=== PATIENT | male | born 1985 | race Caucasian/White ===

== ENCOUNTER 2019-05-04 03:43 | Emergency (ER) | payer SELFPAY ==
[~2019-05-04] VITALS: Ht 170.2 cm; Wt 90.0 kg
[2019-05-04] MEDS ORDERED: KETOROLAC 30 MG/1 ML ONE (04:20)
[2019-05-04] MEDS ORDERED: ONDANSETRON 2MG/ML, 2ML ONE (04:20)
[2019-05-04 04:23] LABS: BASOPHILS # (AUTO) 0.04 x10^3/uL (0-0.1); BASOPHILS % (AUTO) 0 % (0-1); EOSINOPHILS # (AUTO) 0.05 x10^3/uL (0-0.4); EOSINOPHILS % (AUTO) 0 % (1-7); LYMPHOCYTES # (AUTO) 1.71 x10^3/uL (1-3.4); LYMPHOCYTES % (AUTO) 11 % (22-44); MD NO; MEAN CORPUSCULAR HEMOGLOBIN 32.5 pg (27.5-34.5); MEAN CORPUSCULAR HGB CONC 34.3 g/dL (33.2-36.2); MEAN CORPUSCULAR VOLUME 94.7 fL (81-97); MEAN PLATELET VOLUME 9.4 fL (7.4-10.4); MONOCYTES # (AUTO) 1.03 x10^3/uL (0.2-0.8); MONOCYTES % (AUTO) 7 % (2-9); NEUTROPHILS % (AUTO) 81 % (42-75); PLATELET COUNT 188 x10^3/uL (130-400); RED BLOOD COUNT 5.48 x10^6/uL (4.38-5.82); RED CELL DISTRIBUTION WIDTH 12.6 % (9.4-14.8)
[2019-05-04] MEDS ORDERED: SODIUM CHLORIDE 0.9% 1,000ML IVBOLUS ONE (04:30)
[2019-05-04] MEDS ORDERED: ONDANSETRON 2MG/ML, 2ML IVPush ONE (04:30)
[2019-05-04] MEDS ORDERED: KETOROLAC 30 MG/1 ML IVPush ONE (04:30)
--- NOTE | 2019-05-04 04:30 | NUR ---
ABD PAIN SINCE SATURDAY. PAIN IN ED DESCRIBED 15/10. PAIN IN ALL QUADRANTS, ALSO LEFT SIDE. PT HAD VOMITX2 TODAY. APPENDIX REMOVED WHEN HE WAS 8. PIV PLACED AND PT MEDICATED FOR PAIN AND NAUSEA PER EMAR
[2019-05-04 04:33] LABS: MICROSCOPIC NOT IND
[2019-05-04 04:33] LABS: ALANINE AMINOTRANSFERASE 28 U/L (12-78); ALBUMIN 3.6 g/dL (3.4-5.0); ANION GAP 7 mmol/L (5-15); CHLORIDE 104 mmol/L (98-107); CREATININE 1.05 mg/dL (0.7-1.3)
[2019-05-04 04:35] LABS: ALKALINE PHOSPHATASE 66 U/L (45-117); BILIRUBIN,TOTAL 1.4 mg/dL (0.2-1.0); TOTAL PROTEIN 8.2 g/dL (6.4-8.2)
[2019-05-04 04:38] LABS: CULTURE INDICATED? NO
[2019-05-04 05:30] VITALS: BP 140/100
--- NOTE | 2019-05-04 05:30 | NUR ---
PT VERBALIZED PAIN RELIEF. PT STATES HE "FEELS WAY BETTER" AND RATES PAIN A 3/10 COMPARED TO A 15/10 WHEN HE ARRIVED.
== END 2019-05-04 07:02 | disposition home or self-care (01) ==
LOC: ED 05:48
DX: K52.9 Noninfective gastroenteritis and colitis, unspecified (principal); K82.4 Cholesterolosis of gallbladder
CPT/HCPCS: 36415; 76700; 80053; 80307; 81003; 83690; 85025; 96374; 96375; 99284; J1885; J2405; J7030

== ENCOUNTER 2019-12-24 00:29 | Emergency (ER) | payer SELFPAY ==
[~2019-12-24] VITALS: Ht 170.2 cm; Wt 93.1 kg
[2019-12-24 01:01] VITALS: BP 151/113
[2019-12-24] MEDS ORDERED: HYDROmorphone 1 MG/ML, 1ML INJ ONE ×2 (01:02→02:04)
[2019-12-24] MEDS: HYDROmorphone 2 MG/ML, 1ML IVPush PRN ×2 (01:04→02:09)
--- NOTE | 2019-12-24 01:11 | NUR ---
BREAK RN: PATIENT GIVEN MEDICATION, TOLERATED WELL. VITAL SIGNS STABLE. PATIENT DENIES ANY FURTHER NEEDS AT THIS TIME.
[2019-12-24 01:19] LABS: BASOPHILS # (AUTO) 0.02 x10^3/uL (0-0.1); BASOPHILS % (AUTO) 0 % (0-1); EOSINOPHILS # (AUTO) 0.26 x10^3/uL (0-0.4); EOSINOPHILS % (AUTO) 4 % (1-7); LYMPHOCYTES # (AUTO) 2.14 x10^3/uL (1-3.4); LYMPHOCYTES % (AUTO) 37 % (22-44); MD NO; MEAN CORPUSCULAR HEMOGLOBIN 33.1 pg (27.5-34.5); MEAN CORPUSCULAR HGB CONC 34.5 g/dL (33.2-36.2); MEAN CORPUSCULAR VOLUME 96.1 fL (81-97); MEAN PLATELET VOLUME 8.4 fL (7.4-10.4); MONOCYTES % (AUTO) 10 % (2-9); NEUTROPHILS # (AUTO) 2.82 x10^3/uL (1.8-6.8); NEUTROPHILS % (AUTO) 48 % (42-75); PLATELET COUNT 223 x10^3/uL (130-400); RED BLOOD COUNT 4.94 x10^6/uL (4.38-5.82); RED CELL DISTRIBUTION WIDTH 13.1 % (9.4-14.8)
[2019-12-24 01:25] LABS: ALANINE AMINOTRANSFERASE 29 U/L (12-78); ALBUMIN 3.2 g/dL (3.4-5.0); ANION GAP 7 mmol/L (5-15); CALCIUM 8.6 mg/dL (8.5-10.1); CHLORIDE 109 mmol/L (98-107); CREATININE 0.86 mg/dL (0.7-1.3)
[2019-12-24 01:28] LABS: ALKALINE PHOSPHATASE 72 U/L (45-117); BILIRUBIN,TOTAL 0.4 mg/dL (0.2-1.0); TOTAL PROTEIN 6.9 g/dL (6.4-8.2)
== END 2019-12-24 02:52 | disposition home or self-care (01) ==
LOC: ED 01:32
DX: R10.11 Right upper quadrant pain (principal); F10.10 Alcohol abuse, uncomplicated; Y90.0 Blood alcohol level of less than 20 mg/100 ml
CPT/HCPCS: 36415; 80053; 83690; 85025; 96374; 96376; 99284; J1170

== ENCOUNTER 2019-12-28 04:40 | Emergency (ER) | payer SELFPAY ==
[~2019-12-28] VITALS: Ht 170.2 cm; Wt 92.0 kg
[2019-12-28] MEDS ORDERED: SODIUM CHLORIDE FLUSH 10ML SYR IVF ONE (05:00)
[2019-12-28] MEDS ORDERED: MAALOX/HYOSCYAMINE/LIDOCAINE 45 ML BTL PO ONE (05:00)
[2019-12-28] MEDS ORDERED: ONDANSETRON 2MG/ML, 2ML IVPush ONE (05:00)
[2019-12-28] MEDS ORDERED: FAMOTIDINE 20 MG/2 ML IV ONE (05:00)
[2019-12-28] MEDS ORDERED: ONDANSETRON 2MG/ML, 2ML ONE (05:12)
[2019-12-28] MEDS ORDERED: MAALOX/HYOSCYAMINE/LIDOCAINE 45 ML BTL ONE (05:12)
[2019-12-28] MEDS ORDERED: FAMOTIDINE 20 MG/2 ML ONE (05:12)
[2019-12-28 05:55] LABS: BASOPHILS # (AUTO) 0.03 x10^3/uL (0-0.1); BASOPHILS % (AUTO) 0 % (0-1); EOSINOPHILS % (AUTO) 3 % (1-7); LYMPHOCYTES # (AUTO) 2.11 x10^3/uL (1-3.4); LYMPHOCYTES % (AUTO) 34 % (22-44); MD NO; MEAN CORPUSCULAR HEMOGLOBIN 32.3 pg (27.5-34.5); MEAN CORPUSCULAR HGB CONC 33.4 g/dL (33.2-36.2); MEAN CORPUSCULAR VOLUME 96.7 fL (81-97); MEAN PLATELET VOLUME 8.7 fL (7.4-10.4); MONOCYTES # (AUTO) 0.62 x10^3/uL (0.2-0.8); MONOCYTES % (AUTO) 10 % (2-9); NEUTROPHILS % (AUTO) 52 % (42-75); PLATELET COUNT 232 x10^3/uL (130-400); RED BLOOD COUNT 5.24 x10^6/uL (4.38-5.82); RED CELL DISTRIBUTION WIDTH 13.3 % (9.4-14.8)
[2019-12-28 06:03] LABS: ALBUMIN 3.7 g/dL (3.4-5.0); ANION GAP 9 mmol/L (5-15); CHLORIDE 108 mmol/L (98-107)
[2019-12-28 06:08] LABS: ALANINE AMINOTRANSFERASE 29 U/L (12-78); ALKALINE PHOSPHATASE 62 U/L (45-117); BILIRUBIN,TOTAL 0.4 mg/dL (0.2-1.0); CALCIUM 9.4 mg/dL (8.5-10.1); CREATININE 0.91 mg/dL (0.7-1.3); TOTAL PROTEIN 7.8 g/dL (6.4-8.2)
--- NOTE | 2019-12-28 06:24 | NUR ---
PATIENT HAS REQUESTED ADDITIONAL MEDICATIONS RELATED TO PAIN. COMMENT LEFT FOR MD.
[2019-12-28 06:35] LABS: INTERNATIONAL NORMALIZED RATIO 1.02 (0.93-1.1); PROTHROMBIN TIME 10.5 Seconds (9.6-11.5)
--- NOTE | 2019-12-28 06:52 | NUR ---
REPORT RECEIVED FROM LUIS A MOLINA.
--- NOTE | 2019-12-28 07:04 | NUR ---
Note farzaneh in EDM - 12/28/19 at 0708 by MAMI PT SITTING ON BED COMFRTABLY. FAMILY AT BEDSIDE. STATES PAIN IS STILL PRESENT. CALL LIGHT WITHIN REACH, NO ADDITIONAL NEEDS AT THIS TIME. ERP AT BEDSIDE.
--- NOTE | 2019-12-28 07:08 | NUR ---
PT SITTING ON BED COMFORTABLY. FAMILY AT BEDSIDE. STATES PAIN IS STILL PRESENT. CALL LIGHT WITHIN REACH, NO ADDITIONAL NEEDS AT THIS TIME. ERP AT BEDSIDE.
[2019-12-28] MEDS ORDERED: HYDROmorphone 1 MG/ML, 1ML INJ ONE (07:12)
[2019-12-28] MEDS ORDERED: HYDROmorphone 1 MG/ML, 1ML INJ IV ONE (07:30)
[2019-12-28 08:10] VITALS: BP 148/95
== END 2019-12-28 08:13 | disposition home or self-care (01) ==
LOC: ED 06:50
DX: K29.20 Alcoholic gastritis without bleeding (principal); F10.10 Alcohol abuse, uncomplicated; Y90.0 Blood alcohol level of less than 20 mg/100 ml
CPT/HCPCS: 36415; 76700; 80053; 83690; 85025; 85610; 96374; 96375; 99284; J1170; J2405; J3490

== ENCOUNTER 2020-01-03 18:00 | Emergency (ER) | payer MEDICAID, OTHER ==
[~2020-01-03] VITALS: Ht 170.2 cm; Wt 91.0 kg
--- NOTE | 2020-01-03 18:13 | NUR ---
PATIENT WALKED BACK FROM TRIAGE WITH CHIEF C/O ABD PAIN X2.5 WEEKS. PATIENT WAS SEEN SATURDAY THE FOR THE SAME ISSUE AND GIVEN HYDROCODONE FOR THE PAIN. PATIENT STATES THE PAIN HAS NOT GONE AWAY WITH THE PAIN MEDICATION. PATIENT HAS HX OF ETOH, LAST DRINK WAS THIS MORNING. PATIENT DENIES N/V/D. PAIN LEVEL NOW IS 10/10. CONNECTED TO VITALS MACHINE, NO SIGNS OF ACUTE DISTRESS, CALL LIGHT WITHIN REACH.
--- NOTE | 2020-01-03 18:35 | NUR ---
ERMD AT BEDSIDE FOR EVALUATION.
[2020-01-03 18:49] LABS: BASOPHILS # (AUTO) 0.02 x10^3/uL (0-0.1); BASOPHILS % (AUTO) 0 % (0-1); EOSINOPHILS # (AUTO) 0.12 x10^3/uL (0-0.4); EOSINOPHILS % (AUTO) 2 % (1-7); LYMPHOCYTES # (AUTO) 1.75 x10^3/uL (1-3.4); LYMPHOCYTES % (AUTO) 25 % (22-44); MD NO; MEAN CORPUSCULAR HEMOGLOBIN 32.7 pg (27.5-34.5); MEAN CORPUSCULAR HGB CONC 33.9 g/dL (33.2-36.2); MEAN PLATELET VOLUME 8.4 fL (7.4-10.4); MONOCYTES # (AUTO) 0.62 x10^3/uL (0.2-0.8); MONOCYTES % (AUTO) 9 % (2-9); NEUTROPHILS # (AUTO) 4.56 x10^3/uL (1.8-6.8); NEUTROPHILS % (AUTO) 65 % (42-75); PLATELET COUNT 247 x10^3/uL (130-400); RED CELL DISTRIBUTION WIDTH 12.7 % (9.4-14.8)
[2020-01-03 19:01] LABS: ALANINE AMINOTRANSFERASE 40 U/L (12-78); ALBUMIN 3.7 g/dL (3.4-5.0); ANION GAP 7 mmol/L (5-15); CALCIUM 9.2 mg/dL (8.5-10.1); CHLORIDE 109 mmol/L (98-107); CREATININE 1.04 mg/dL (0.7-1.3)
[2020-01-03 19:04] LABS: ALKALINE PHOSPHATASE 67 U/L (45-117); BILIRUBIN,TOTAL 0.5 mg/dL (0.2-1.0); TOTAL PROTEIN 7.9 g/dL (6.4-8.2)
[2020-01-03] MEDS ORDERED: KETOROLAC 60 MG/2 ML ONE (19:25)
[2020-01-03] MEDS ORDERED: KETOROLAC 30 MG/1 ML IM ONE (19:30)
[2020-01-03 19:40] VITALS: BP 129/72
== END 2020-01-03 19:42 | disposition home or self-care (01) ==
LOC: ED 18:31
DX: R10.11 Right upper quadrant pain (principal)
CPT/HCPCS: 36415; 74176; 80053; 83690; 85025; 99284